=== PATIENT | female | born 1995 | race Caucasian/White ===

== ENCOUNTER → 2019-10-04 13:02 | Outpatient (ROUT) | payer OTHER, SELFPAY ==
[2019-10-04 14:39] LABS: Urine N gonorrhoeae NOT DETECTED
[2019-10-04 14:44] LABS: Urine Chlamydia NOT DETECTED
== END ==
PROVIDERS: Visit Provider Specialist
DX: Z11.3 Encounter for screening for infections with a predominantly sexual mode of transmission (principal)
CPT/HCPCS: 87491; 87591